=== PATIENT | male | born 1955 | race Hispanic/Latino ===

== ENCOUNTER → 2022-12-27 | Outpatient (CLI) | payer BC | END | disposition home or self-care (01) | LOC: SHCH 08:38 | PROVIDERS: ATTEND Student in an Organized Health Care Education/Training Program | DX: R94.31 Abnormal electrocardiogram [ECG] [EKG] (principal); I10 Essential (primary) hypertension | CPT/HCPCS: 93306 ==

== ENCOUNTER → 2023-04-27 | Outpatient (CLI) | payer OTHER ==
[~2023-04-27] MED LIST: CETI10TA57 PO; FENO160T16 PO; LOSA1TAB54 PO; MONT-39 PO; PANT20TA18 PO; SPIR25TA6 PO
== END | disposition home or self-care (01) ==
LOC: SHCH 08:40
PROVIDERS: ATTEND Student in an Organized Health Care Education/Training Program
DX: I25.10 Atherosclerotic heart disease of native coronary artery without angina pectoris (principal); I10 Essential (primary) hypertension; E11.9 Type 2 diabetes mellitus without complications; E78.5 Hyperlipidemia, unspecified; Z95.1 Presence of aortocoronary bypass graft
CPT/HCPCS: 93306

== ENCOUNTER → 2023-11-23 | Outpatient (CLI) | payer OTHER ==
[2023-11-23 21:41] VITALS: PULSE 65; RESP 12
[2023-11-23 22:26] VITALS: PULSE 56; RESP 12
[2023-11-23 22:56] VITALS: PULSE 58; RESP 12
[2023-11-23 23:26] VITALS: PULSE 58; RESP 10
[2023-11-23 23:57] VITALS: PULSE 58; RESP 12
[2023-11-24] VITALS (16 sets, daily range): PULSE 53–61; RESP 9–16
== END | disposition home or self-care (01) ==
LOC: SLP 19:37
PROVIDERS: ATTEND Family Medicine
DX: G47.33 Obstructive sleep apnea (adult) (pediatric) (principal); R05.3 Chronic cough
CPT/HCPCS: 95810